=== PATIENT | male | born 1950 | race Caucasian/White ===

== ENCOUNTER 2021-08-27 09:37 | Emergency (ER) | payer MEDICARE, BC ==
[~2021-08-27] VITALS: Ht 193 cm; Wt 102.1 kg
[2021-08-27] MEDS ORDERED: OMEPRAZOLE20 MG PO (10:10)
[2021-08-27] MEDS ORDERED: PRED-G 1% EYE DR5 ML OPTH (10:11)
[2021-08-27] MEDS ORDERED: COMBIGAN EYE DRO5 ML OD (10:12)
--- NOTE | 2021-08-27 17:27 | EKG ---
[facility] [address] [facility] [place], [place] [address] Signed Sinus bradycardia Left axis deviation Abnormal ECG No previous ECGs available Confirmed by MINH SAINI MD ([id number] on 08/27/2021 5:27:06 PM Electronically Signed By: MINH SAINI MD 08/27/21 1727 PATIENT NAME: MADHURI DOWNEY Electrocardiogram DATE OF : 48 PHYSICIAN: MINH SAINI MD REPORT #: [id number] REPORT IS CONFIDENTIAL AND NOT TO BE RELEASED WITHOUT AUTHORIZATION
== END 2021-08-27 12:21 | disposition home or self-care (01) ==
LOC: ED 09:37
DX: R55 Syncope and collapse (principal); Z88.8 Allergy status to other drugs, medicaments and biological substances; Z79.899 Other long term (current) drug therapy
CPT/HCPCS: 36415; 80048; 85025; 93005; 93010; 99284-25; J7030